=== PATIENT | female | born 1995 ===

== ENCOUNTER 2023-10-10 05:48 | Inpatient (IN) ==
--- NOTE | 2023-10-03 12:00 | Anesthesiology Consultation ---
Date of Service October 03, 2023 Assessment & Plan (1) Encounter for pre-operative examination: Chart Review Chart Review: blasting entry specialist initiated -Infectious Disease screening: Per PAT nursing assessment on 10/01/23. No known infectious disease contacts in past 10 days or current infectious disease symptoms. No recent travel outside the country. History Surgery Operation Date: 10/10/23 08:50 Proposed Procedures p Primary Section in - Melissa Tovar MD Height/Weight Height: 5 ft 7 in Weight: 136.078 kg Allergies Allergy/AdvReac Type Severity Reaction Status Date / Time escitalopram [From Lexapro] Allergy Mild Diarrhea Verified 10/01/23 15:01 Medications Home Medications Medication Instructions Recorded Confirmed Last Taken ascorbic acid (vitamin C) 500 mg 500 mg PO QAM 10/01/23 10/01/23 Unknown tablet (Vitamin C) cholecalciferol (vitamin D3) 50 50 mcg PO QAM 10/01/23 10/01/23 Unknown mcg (2,000 unit) capsule (Vitamin D3) sertraline 100 mg tablet 75 mg PO QPM 10/01/23 10/01/23 Unknown vitamin [id number] B1 100 mg-1 10 ml IM [id number] 10/01/23 10/01/23 Unknown mg/mL intramuscular solution Past Medical History Medical History Anemia iron infusion completed 09/28/23 Depression with anxiety History of COVID-19 (~08/2022) home test, resolved Past Surgical History Surgical History History of tonsillectomy and adenoidectomy Hx of bariatric surgery (~11/2021) gastric sleeve Hx of esophagogastroduodenoscopy Social History Smoking Status: Never smoker Do You Dip or Chew Tobacco: No Hx Alcohol Use: No Hx Substance Use: No substance use type: does not use Testing Laboratory Results 08/24/23= HGB: 11.2 POTASSIUM: 3.9 CREATININE: 0.60 GLUCOSE: 113
[2023-10-10] MEDS: LACTATED RINGER'S 1,000 ML IV SCH (06:25)
[2023-10-10] MEDS ORDERED: ONDANSETRON INJ 2 MG/ML 2 ML VIAL ONE (06:46)
[2023-10-10] MEDS ORDERED: ePHEDrine sulfate 50 MG/5 ML SYR ONE (06:46)
[2023-10-10] MEDS ORDERED: PHENYLEPHRINE 100MCG/ML 10ML SYR IV ONE (06:46)
[2023-10-10] MEDS ORDERED: OXYTOCIN 10 UNITS/ML VIAL ONE (06:46)
[2023-10-10] MEDS ORDERED: fentaNYL citrate PF 100 MCG/2 ML VIAL ONE (06:47)
[2023-10-10] MEDS ORDERED: MoRPHine SULFATE PF 1 MG/ML 10 ML AMP/VIAL ONE (06:47)
[2023-10-10] MEDS: CITRIC ACID/SODIUM CITRATE 15 ML UDC PO SCH (07:07)
[2023-10-10] MEDS: ceFAZolin 3,000 MG/72.5 ML BAG IV SCH (07:46)
--- NOTE | 2023-10-10 07:50 | History & Physical Bridge Note ---
Date of Service October 10, 2023 History & Physical Bridge Note I have examined the patient, reviewed the History & Physical and in the interval since the performance of the History & Physical I have noted the following changes of clinical significance: no changes noted Bed side US: Breech Patient has mild cough, no fever, chills, nor sore throat CVS S1S2 RRR Lungs: CTAB FHR categ I Pulse ox 99% RA Has signed an informed consent. All questions were answered.
[2023-10-10] MEDS ORDERED: LACTATED RINGER'S 500 ML IV PRN (08:32)
[2023-10-10] MEDS ORDERED: PROMETHAZINE HCL 6.25 MG in SODIUM CHLORIDE 0.9% 50 ML IV PRN (08:32)
[2023-10-10] MEDS ORDERED: ePHEDrine sulfate 50 MG/ML AMP IV PRN (08:32)
[2023-10-10] MEDS ORDERED: NALOXONE HCL 1 MG in SODIUM CHLORIDE 0.9% 1,000 ML IV PRN (08:32)
[2023-10-10] MEDS ORDERED: NALBUPHINE HCL 5 MG in SYRINGE 0 ML IV PRN (08:32)
[2023-10-10] MEDS ORDERED: NALOXONE HCL 0.08 MG in SYRINGE 1.8 ML IV PRN (08:32)
[2023-10-10] MEDS ORDERED: ONDANSETRON INJ 2 MG/ML 2 ML VIAL IV PRN (08:32)
[2023-10-10] MEDS ORDERED: NALOXONE HCL 0.4 MG/1 ML VIAL/CARP IV PRN (08:32)
[2023-10-10] MEDS ORDERED: DC INTRASPINAL MORPHINE SCH (08:45)
[2023-10-10] MEDS ORDERED: NO NARCOTICS OR SEDATIVES SCH (08:45)
--- NOTE | 2023-10-10 09:41 | Operative Report ---
Post Operative Report Pre & Post Diagnosis Operation Date: 10/10/23 07:30 Pre-Op Diagnosis: Michael Breech Presentation Post-Op Diagnosis: Michael Breech Presentation I identified the patient and participated in the time-out.: Yes Procedure Operation Date: 10/10/23 07:30 Actual Procedures p Primary Section - Melissa Tovar MD Surgeon Melissa Tovar MD Administrative Support Specialist Dr ASKEW Estimated Blood Loss 500 Findings Consistent with Post-Op Diagnosis Baby was a viable female infant, delivered at 0 8:48 AM in michael breech presentation, Apgars 2/9, weight 4020 g Maternal findings: Normal uterus, fallopian tubes and ovaries. Specimens Placenta Drains Bowers catheter drained 150 mL of clear urine Anesthesia Type Spinal Complications none Disposition Accompanied Patient To Recovery: Yes Indications Patient is a 27-year-old G1, P0 at 39 weeks and 5 days of gestation who was scheduled for primary for breech presentation at term. Bedside ultr asound confirmed breech presentation before the procedure. Description of Procedure Patient was taken to operating room where a spinal anesthesia was given without difficulty. She was placed in dorsal supine position with a leftward tilt. She was prepared and draped in usual sterile fashion. A financial skin incision was made and carried through to the underlying layer of fascia with the Bovie. Fascia was incised in the midline and incision was extended laterally with the help of Meléndez scissors. Then the upper aspect of the fascial incision was grasped with 2 Vance clamps elevated the underlying rectus muscles were dissected off sharply with Meléndez scissors. Same thing was done on the lower incision. Then the muscles were in the midline, peritoneum was identified grasped with 2 pickups and entered sharply with Metzenbaum scissors. Peritoneal incision was extended superior and inferiorly with good visualization of the bladder. The bladder blade was inserted. Vesicouterine peritoneum was identified, grasped with pickups and entered sharply with Metzenbaum scissors, bladder flap was created digitally and bladder blade was reinserted. Uterus was incised in transverse fashion, incision was extended laterally with Bandage scissors, membranes were ruptured and clear fluid was obtained. Baby's buttocks were delivered , followed by legs and arms in flexion position and then head without faculty. Mouth and nose were suctioned, The cord was clamped times and cut and then the infant was handed off to the pediatric team. Dr. Tadeo. Then the placenta was delivered manually as intact and complete. Uterus was externalized and cleared of all clots and debris's. Uterine incision was repaired with 0 Vicryl in a running locked fashion, second umbricating layer was placed with the same suture in running locked fashion. Excellent hemostasis achieved. Cul-de-sac and the pelvis was irrigated with warm normal saline and suctioned. Incision was checked of anesthetic again. Uterus was returned to the abdomen, parietal peritoneum was reapproximated with 3-0 Vicryl in a running fashion and the muscles were reapproximated in the same suture in a running fashion. All of the fascia and rectus muscles were hemostatic. Rectus fascia was reapproximated with #1 Vicryl starting from both corners meeting in the midline. Subcuticular fat tissue was brought together with 2-0 Vicryl in a running fashion, skin was closed with 4-0 Monocryl in a subcuticular cuticular fashion. Incision was draped with allison dressing. The mom and baby tolerated procedure well. Sponge needle instrument count was correct x3. No complications happened, I was present during whole procedure. My safety assistant was needed for retraction, hemostasis and aid during delivery of infant. I attest to the content of the Intraoperative Record and any orders documented therein. Any exceptions are noted below.
[2023-10-10] MEDS ORDERED: SENNA 8.6 MG TAB PO PRN (09:42)
[2023-10-10] MEDS ORDERED: HYDROCORTISONE ACETATE 25 MG SUPP PR PRN (09:42)
[2023-10-10] MEDS ORDERED: BENZOCAINE 20% SPRY 85 APPLN/85 GM CAN EXT PRN (09:42)
[2023-10-10] MEDS ORDERED: MAGNESIUM HYDROXIDE SUSP 30 ML UDC PO PRN (09:42)
[2023-10-10] MEDS ORDERED: IBUPROFEN 600 MG TAB PO PRN (09:42)
--- NOTE | 2023-10-10 09:57 | Anesthesiology Progress Note ---
Date of Service October 10, 2023 Anesthesia Post Procedure Vital Signs Vital Signs: Temp Pulse Resp BP Pulse Ox 10/10/23 09:53 70 100 10/10/23 09:52 73 92 10/10/23 09:48 55 L 99 10/10/23 09:45 57 L 106/53 L 10/10/23 08:01 80 99 10/10/23 07:56 70 99 10/10/23 07:51 81 99 10/10/23 07:46 87 99 10/10/23 06:07 36.6 C 18 10/10/23 06:03 36.6 C 115 H 18 121/74 Transfer of Care Handoff Completed per policy Notes Mental Status: alert / awake / arousable and participated in evaluation Patient Amnestic to Procedure: No Nausea / Vomiting: adequately controlled Pain: adequately controlled Airway Patency, RR, SpO2: stable & adequate BP & HR: stable & adequate Hydration State: stable & adequate Neuraxial Anesthesia: was administered and sensory block is resolving Anesthetic Complications: no major complications apparent and Pt Satisfied with anesthetic care
[2023-10-10] MEDS: OXYTOCIN 20 UNITS/LR 1,002 ML IV SCH (10:29)
[2023-10-10] MEDS: KETOROLAC 30 MG/ML VIAL IV PRN (10:29)
[2023-10-10] MEDS: diphenhydrAMINE 50 MG/ML VIAL IV PRN (12:51)
[2023-10-10] MEDS: SIMETHICONE 80 MG CHEW PO SCH (13:43)
[2023-10-10] MEDS: HYDROmorphone INJ 0.5 MG/0.5 ML SYR IV PRN (14:01)
--- OUTSIDE RECORDS SUMMARY | 2023-10-10 16:29 | External Medical Summary | Summary of Care ---
Author Name Unknown Organization [facility] [address] [place] [address] Phone [phone] Care Team Providers Care Joiners Supervisor Name Role Phone Unavailable Primary Care Provider Unavailabl e Encounter Details Date Type Department Care Team (Late st Contact Info) Description 10/06/2023 Telephone Gynecology/Obstetrics [facility] [address] [place] [id number] Genoveva Zheng [facility] [address] [facility] [place] [address] Allergies Active Allergy Reactions Criticality Noted Date Comments Escitalopram Diarrhea 09/07/2020 documented as of this encounter (statuses as of 10/06/2023) Medications Medication Sig Dispensed Refills Start Date End Date Status 28-0.8 MG Oral Tablet Take by mouth. 0 Active OneTouch Verio Flex System w/Device KitIndications:Obesi ty in , antepartum,H/O gastric sleeve Use to test blood sugars 4 times daily (fasting, 1 hour after breakfast, lunch, and dinner) 1 Kit 0 03/13/2023 Active Additional Information Patient not taking.Reported on 05/28/2023 OneTouch Verio In Vitro Strip (Glucose Blood)Indications:Ob esity in , antepartum,H/O gastric sleeve Use to test blood sugars 4 times daily (fasting, 1 hour after breakfast, lunch, and dinner) 125 Strip 6 03/13/2023 Active Additional Information Patient not taking.Reported on 05/28/2023 OneTouch Delica Lancets 30GIndications:Obesi ty in , antepartum,H/O gastric sleeve Use to test blood sugars 4 times daily (fasting, 1 hour after breakfast, lunch, and dinner) 200 Each 6 03/13/2023 Active Additional Information Patient not taking.Reported on 05/28/2023 Ferrous Fumarate 324 (106 Fe) MG Oral Tablet Take 1 Tablet by mouth in the morning. Take with vitamin C. 90 Tablet 3 05/17/2023 Active Additional Information Patient not taking.Reported on 06/05/2023 Vitamin C 500 MG Oral Tablet Chewable Take 1 Tablet by mouth in the morning. 90 Tablet 3 05/17/2023 Active Sertraline HCl 50 MG Oral Tablet (Zoloft)Indications: DUDLEY (generalized anxiety disorder) Take 1.5 Tablets by mouth in the morning. 45 Tablet 5 05/28/2023 Active Vitamin D3 50 MCG (2000 UT) Oral Capsule Take 1 Capsule by mouth in the morning. 30 Capsule 5 05/29/2023 Active Thiamine HCl 100 MG Oral Tablet (vitamin B-1) Take 1 Tablet by mouth in the morning. 30 Tablet 1 06/11/2023 Active Breast Pump BREAST FEEDING STATUS OF MOTHER Z39.1 DAPHNE 10/13/23 1 Each 0 07/16/2023 Active Cyanocobalamin 1000 MCG/ML Injection Solution (Cyanocobalamin)Erin cations:B12 deficiency Administer 1000mcg into large muscle weekly x4 weeks then monthly thereafter 1 mL 8 08/27/2023 Active BD TB Syringe 27G X 1/2" 1 ML (Tuberculin Syringe)Indications: B12 deficiency Use as directed with Retacrit 4 Each 2 08/27/2023 Active Ondansetron 4 MG Oral Tablet Disintegrating (Zofran)Indications: Nausea and vomiting during Place 1 Tablet on tongue every 8 hours as needed for Nausea for up to 10 days. dissolve on tongue. 10 Tablet 1 10/06/2023 Active documented as of this encounter (statuses as of 10/06/2023) Active Problems Problem Noted Date Diagnosed Date Iron deficiency anemia due to chronic blood loss 05/29/2023 H/O gastric bypass 05/29/2023 Antepartum anemia complicating 023 Last Assessment & Plan: KHADAR in setting of prior gastric bypass. Scheduled for first IV iron therapy today. Hemoglobin Results: Lab Results Component Value Date/Time HGB - [facility] 9.0 (L) 05/29/2023 01:12 PM BMI 40.0-44.9, adult 05/16/2023 Anxiety disorder affecting , antepartum 03/13/2023 Overview: Anxiety managed with Zoloft by Dr. Carter Stopped Trazodone with knowledge of the Last Assessment & Plan: Continue zoloft. No concerns reported today. HTN in , chronic 03/13/2023 Overview: Treated with antihypertensives prior to gastric sleeve surgery, BP has normalized since and she is no longer on medications. Encouraged patient to complete baseline preeclampsia labs at her earliest convenience. Recommend bASA 81 mg daily. Encouraged patient to discuss with bariatric surgery prior to starting aspirin therapy. BP Readings from Last 5 Encounters: 04/13/23 112/66 03/13/23 110/64 10/23/22 134/84 02/08/22 118/70 09/01/21 126/70 Baseline Preeclampsia Labs Lab Results Component Value Date/Time PROTEIN/ CREATININE RATIO, URINE - [facility] 93 03/13/2023 12:21 PM Last Assessment & Plan: BP Readings from Last 3 Encounters: 05/29/23 137/71 05/28/23 112/78 04/13/23 112/66 Obesity in , antepartum 10/23/2022 Overview: Pre-gravid BMI 45.25 (#289, 5'7") Early gestational diabetes screening not completed to date. Patient plans to complete [address] Boyce staff message 03/14/23 for recommendations for possible GLH delivery Last Assessment & Plan: CONSIDERATIONS: Discussed obstetrical risks associated with class III obesity (pre- BMI of greater than or equal to 40) Reviewed that the accuracy of ultrasound at diagnosing anomalies is significantly decreased for women with an increased BMI. RECOMMENDATIONS: Recommend restricting weight gain during to 11-20 pounds. Patient should be referred for a nutrition consult. Recommend evaluation for signs and symptoms (snoring, excessive daytime sleepiness witnessed apnea or unexplained hypoxia) of obstructive sleep apnea. If any of these are present, referral to Sleep Medicine specialist for further evaluation should be considered. Recommend performing gestational diabetes mellitus screen now (if not performed at first visit) and repeat again at 26-28 weeks if early screen is normal. Recommend Maternal- Medicine ultrasound for anatomy at 20 weeks and for growth every 4 weeks thereafter. For patients with Class 3 obesity, we recommend baseline preeclamptic labs with CBC, serum AST/ALT/creatinine and 24 hour urine protein ANTWAN if not already done. For patients with Class 3 obesity, we recommend weekly surveillance starting at 34 weeks and delivery by EDC. Recommend anesthesia consult during the antepartum period. Previous gastric bypass affecting , ant epartum 02/08/2022 Overview: Patient underwent laparoscopic sleeve gastrectomy through [facility] in November 29, 2021 (Dr Aguirre). Starting weight was 430 lbs. She no longer follows with Nutrition or with bariatric surgery. She states that she has lost weight unintentionally thus far in . Last Assessment & Plan: CONSIDERATIONS: Explained to patient that weight loss after bariatric surgery often leads to greater fertility and a decreased risk for the obstetric complications. Explained that it is recommended to delay for 12 to 24 months after bariatric surgery to avoid during the period of rapid weight loss. Women with a gastric band should be monitored during because the band may need to be adjusted. In there may be a delay in diagnosis of bariatric-related operative complications, including anastomotic leaks, bowel obstructions, internal hernias, ventral hernias, band erosion, and band migration. Therefore, all gastrointestinal problems such as nausea, vomiting, and abdominal pain should be thoroughly evaluated with involvement of the bariatric surgeon because the underlying pathology may be related to the bariatric surgery, not the itself. Discussed the most common nutritional deficiencies after gastric bypass surgery to include protein, iron, vitamin B12, folate, vitamin D, and calcium. RECOMMENDATIONS: Vitamin supplements recommended for the woman with a history of bariatric surgery are as follows: - vitamin daily with 1mg of folic acid -Vitamin B12 IM injection 1000mcg monthly -Vitamin D 800 IU daily -Calcium citrate 3781-5849 mg daily (better absorbed than calcium carbonate) -Ferrous fumarate 325 mg daily (taken with vitamin C to improve absorption and acidify the stomach). -If patient has persistent vomiting, then add thiamine 50mg daily. Other nutritional information to consider: -Protein intake of 60 g daily is recommended. -Excess vitamin A consumption during is associated with defects. Vitamin A should be limited to less than 5,000 IU per day during . Vitamins with beta-carotene, the pre-form Vitamin A which is not teratogenic, are preferred. Recommend nutrition referral to help the patient adhere to dietary regimens and to cope with the physiologic changes of . Recommend Maternal Medicine anatomy ultrasound at 19-20 weeks and serial growth assessments every 4 weeks after 24 weeks. Patients with a history of gastric bypass often cannot tolerate the gestational diabetes screen secondary to dumping syndrome. Therefore, as an alternative screening method, we recommend monitoring fasting and 1-hour postprandial blood sugars for one week between 24-28 weeks of gestation. Bariatric surgery should not alter the course of labor and delivery, and therefore, it does not significantly affect its management. Bariatric surgery itself should not be considered as an indication for delivery. Patients with history of bariatric surgery within past two years should notify their bariatric surgeon. Consider pre-labor consultation with bariatric surgeon if extensive abdominal surgery was performed. 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 DUDLEY (generalized anxiety disorder) Estimated Date of Delivery Comme nts Yes 10/13/2023 Based on last me nstrual period of 01/06/2023 (Exact Date) documented as of this encounter (statuses as of 10/06/2023) Resolved Problems Problem Noted Date Diagnosed Date Resolved Date Supervision of high-risk pre gnancy, second trimester 05/16/2023 10/06/2023 Last Assessment & Plan: Declined genetic screening S/P gastric bypass 02/08/2022 Last Assessment & Plan: 12/18 Body mass index (BMI) of 60. 0 to 69.9 in adult 10/04/2020 10/23/2022 Overview: Per Obesity protocol Chest pain 08/31/2020 09/29/2020 Menorrhagia with irregular cycle 08/31/2020 05/28/2023 Obesity, morbid (more than 1 00 lbs over ideal weight or BMI > 40) 08/31/2020 10/07/2020 Overview: Per Obesity protocol Fatigue 08/31/2020 01/26/2021 Fear of needles 08/31/2020 02/08/2022 Hypertension 05/28/2023 Depression 08/31/2020 documented as of this encounter (statuses as of 10/06/2023) Immunizations Name Administration Dates Next Due DT - Diptheria/Tetanus (PEDS) 11/28/1996 DTaP Dipth/Tet/Acell Pertussis (Infanrix), Peds 11/06/2000,04/13/1997,11/28/1996, 997,05/02/1996 Hepatitis B, 0-19 yrs 11/28/1996,08/19/1996,10/1995 MMR - Measles/Mumps/Rubella Vaccine 11/06/2000,0 04/13/1997 PPD 03/15/2021 Varicella Vaccine (Chicken Pox) 11/01/2011,03/20 documented as of this encounter Social History Tobacco Use Types Packs/Day Years Used Date Smoking Tobacco: Never Smokeless Tobacco: Never Alcohol Use Standard Drinks/Week Comments Not Currently 0 (1 standard drink = 0.6 oz pur e alcohol) Denies in AUDIT-C Answer Date Recorded Q1: How often do you have a drink containing alc ohol? 2-4 times a month 08/31/2020 Q2: How many drinks containi ng alcohol do you have on a typical day when you are drinking? 5 or 6 08/31/2020 Q3: How often do you have si x or more drinks on one occasion? Monthly 08/31/2020 PHQ-2 Answer Date Recorded PHQ Adult Total Score 0 09/29/2020 Hunger Vital Sign Answer Date Recorded Within the past 12 months, y ou worried that your food would run out before you got the money to buy more. Never true 06/05/20 23 Within the past 12 months, t he food you bought just didn't last and you didn't have money to get more. Never true 06/05/2023 Jerome Depression Scale Answer Date Recorded Jerome Depression Scale Total 7 07/16/2023 The thought of harming myself has occurred to me . Never 07/16/2023 Estimated Date of Delivery Comme nts Yes 10/13/2023 Based on last me nstrual period of 01/06/2023 (Exact Date) Sex and Gender Information Value Date Recorded Sex Assigned at Female 09/11/2022 6:41 AM EST Gender Identity Female 09/11/2022 6:41 AM EST Sexual Orientation Straight 09/11/2022 6: 41 AM EST Job Start Date Occupation Industry Not on file Not on file Not on file documented as of this encounter Miscellaneous Notes * Telephone Encounter - Genoveva Zheng MD - 10/06/2023 11:26 AM EST Patient request on d/c from [facility] triage RX sent documented in this encounter Plan of Treatment Upcoming Encounters Date Type Department Care Team (Late st Contact Info) Description 10/08/2023 11:30 AM EDT Telemedicine Hematology Oncology [facility] [address] [place] [address] Wandy Stone CRNP [address] [place] [address] 10/18/2023 12:00 PM EDT Office Visit Gynecology/Obstetrics [facility] [address] [place] [id number] Josy Boss CRNP [address] [place] [address] Health Maintenance Due Date Last Done Comments DTaP,Tdap,and Td Vaccines (6 - Tdap) 10/10/2006 11/06/2000, 04/13/1997, 11/28/1996, Additional history exists HIV Screening 10/10/2010 Depression Screening 09/29/2021 09/29/2020 COVID-19 Vaccine ( season) 2023 Influenza Vaccine (FLU shot) (#1) 2023 GFR 08/24/2024 08/24/2023, 05/01, 05/24/2023, Additional history exists Pap Smear 03/13/2026 03/13/2023 Hepatitis B Completed 11/28/1996, 07/31, 05/02/1996 Gonorrhea / Chlamydia Screen Discontinued 03/13/2023 Albumin/Creatinine Ratio Discontinued 05/24/2023, 04/30 GARDASIL-HPV IMMUNIZATION SERIES Aged Out No longer eligible based on patient's age to complete this topic MENINGOCOCCAL (MENACTRA/MENVEO) Aged Out No longer eligible based on patient's age to complete this topic Pneumococcal Vaccine: Pediatrics (0 to 5 Years) and At-Risk Patients (6 to 64 Years) Aged Out No longer eligible based on patient's age to complete this topic documented as of this encounter Medical Devices Not on filedocumented as of this encounter Visit Diagnoses Diagnosis Nausea and vomiting during - Primary documented in this encounter
--- OUTSIDE RECORDS SUMMARY | 2023-10-10 16:29 | External Medical Summary | Summary of Care ---
Author Name Unknown Organization [facility] Address [address] [place] [address] Phone [phone] Care Team Providers Care Lawn Specialist Name Role Phone Unavailable Primary Care Provider Unavailabl e Encounter Details Date Type Department Care Team (Late st Contact Info) Description 10/08/2023 Orders Only [facility] [address] [place] [address] Josy Boss CRNP [address] [place] [id number] Allergies Active Allergy Reactions Criticality Noted Date Comments Escitalopram Diarrhea 09/07/2020 documented as of this encounter (statuses as of 10/08/2023) Medications Medication Sig Dispensed Refills Start Date [...] as of this encounter (statuses as of 10/08/2023) Active Problems Problem Noted Date Diagnosed Date [...] Overview: Patient underwent laparoscopic sleeve gastrectomy through [facility] in November 29, 2021 (Dr Aguirre). [...] -Vitamin D 800 IU daily -Calcium citrate 2310-2792 mg daily (better absorbed than calcium carbonate) [...] Fear of other medical care 08/31/2020 Overview: [facility] [employer] exams. DUDLEY (generalized anxiety disorder) Estimated Date of Delivery Comme nts Yes 10/13/2023 Based on last me nstrual period of 01/06/2023 (Exact Date) documented as of this encounter (statuses as of 10/08/2023) Resolved Problems Problem Noted Date Diagnosed Date [...] as of this encounter (statuses as of 10/08/2023) Immunizations Name Administration Dates Next Due DT [...] money to get more. Never true 06/05/2023 [place] Depression Scale Answer Date Recorded [place] Depression Scale Total 7 07/16/2023 The thought [...] on file documented as of this encounter Plan of Treatment Upcoming Encounters Date Type Department Care Team (Late st Contact Info) Description 10/08/2023 11:30 AM EDT Telemedicine Hematology Oncology [facility] [address] [place] [address] Wandy Stone CRNP [address] [place] [address] 10/18/2023 12:00 PM EDT Office Visit Gynecology/Obstetrics [facility] [address] [place] [phone] Josy Boss CRNP [address] [place] [phone] Health Maintenance Due Date Last Done Comments DTaP,Tdap,and Td Vaccines (6 - Tdap) 10/10/2006 11/06/2000, 04/13/1997, 11/28/1996, Additional history exists HIV Screening 10/10/2010 Depression Screening 09/29/2021 09/29/2020 COVID-19 Vaccine ( season) 2023 Influenza Vaccine (FLU shot) (#1) 2023 GFR 08/24/2024 10/06/2023, 07/31, 05/29/2023, Additional history exists Pap Smear 03/13/2026 03/13/2023 [...] Not on filedocumented as of this encounter Procedures Procedure Name Priority Date/Time Associated Diagnosis Comments CHEMISTRY-OUTSIDE Routine 10/06/2023 documented in this encounter Results * CHEMISTRY-OUTSIDE (10/06/2023) Not all results display below - see scan for full detail OUTSIDE LAB (SEE SCANNED REPORT) Comment:SEE SCAN; CMP, CBCD ,UA RFLX MICROS CREATININE-OUTSID E LAB 0.66 0.6 - 1.2 MG/DL OUTSIDE LAB (SEE SCANNED REPORT) EGFR-OUTSIDE LAB 121.1 ML/MIN/1.7 3M2 OUTSIDE LAB (SEE SCANNED REPORT) POTASSIUM-OUTSIDE LAB 3.8 3.5 - 5.1 MMOL/L OUTSIDE LAB (SEE SCANNED REPORT) GLUCOSE-OUTSIDE LAB 81 70 - 99 MG/DL OUTSIDE LAB (SEE SCANNED REPORT) HOURS FASTING OUTSID E LAB (SEE SCANNED REPORT) TRIGLYCERIDES-OUT SIDE LAB OUTSIDE LAB (SEE SCANNED REPORT) CHOLESTEROL-OUTSI DE LAB OUTSIDE LAB (SEE SCANNED REPORT) HDL-OUTSIDE LAB OUTS FAHAD LAB (SEE SCANNED REPORT) CHOL/HDL RATIO-OUTSIDE LAB OUTSIDE LA B (SEE SCANNED REPORT) LDL (CALCULATED)-OUTS FAHAD LAB OUTSIDE LAB (SEE SCANNED REPORT) LDL (DIRECT MEASURE)-OUTSIDE LAB OUTSIDE LAB (SEE SCANNED REPORT) HEMOGLOBIN, Q5C-TMOQGKR LAB OUTSIDE LAB (SEE SCANNED REPORT) PHOSPHORUS-OUTSID E LAB OUTSIDE LAB (SEE SCANNED REPORT) PTH-OUTSIDE LAB OUTS FAHAD LAB (SEE SCANNED REPORT) MICROALBUMIN RATIO-OUTSIDE LAB OUTSIDE LA B (SEE SCANNED REPORT) PROTEIN, UA-OUTSIDE LAB OUTSIDE LAB (SEE SCANNED REPORT) HEMOGLOBIN-OUTSID E LAB 12.3 12.0 - 16.0 G/DL OUTSIDE LAB (SEE SCANNED REPORT) 10/06/2023 Howard Bustos MD LABORATORY OUTSIDE LAB (SEE SCANNED REPORT) documented in this encounter
[2023-10-10] MEDS: ceFAZolin 2000MG 2,000 MG/15 ML SYR IV SCH (16:35)
[2023-10-10] MEDS: LACTATED RINGER'S 1,000 ML IV ONE (18:21)
[2023-10-10] MEDS: DOCUSATE SODIUM 100 MG CAP PO SCH (21:36)
[2023-10-10] MEDS ORDERED: [UNRECOGNIZED DRUG - OTHER] IM SCH (22:30)
[2023-10-10] MEDS ORDERED: SERTRALINE HCL 100 MG TABLET PO SCH (22:30)
[2023-10-10] MEDS: SERTRALINE HCL 50 MG TABLET PO SCH (23:30)
[2023-10-11] MEDS ORDERED: diphenhydrAMINE 50 MG/ML VIAL IV PRN (02:33)
[2023-10-11] MEDS ORDERED: MEPERIDINE HCL 50 MG/ML CARP IV PRN (02:33)
[2023-10-11] MEDS ORDERED: ONDANSETRON INJ 2 MG/ML 2 ML VIAL IV PRN (02:33)
[2023-10-11] MEDS ORDERED: diphenhydrAMINE Capsule 25 MG CAP PO PRN (02:33)
[2023-10-11] MEDS ORDERED: KETOROLAC 30 MG/ML VIAL IV PRN (02:33)
[2023-10-11] MEDS ORDERED: PROMETHAZINE HCL 25 MG in SODIUM CHLORIDE 0.9% 50 ML IV PRN (02:33)
[2023-10-11 07:54] LABS: Basophils # (auto) 0.01 K/uL (0.00-0.20); Basophils % (auto) 0.2 %; Hematocrit (blood only) 34.2 % (37.0-47.0); Hemoglobin 11.1 g/dl (12.0-16.0); Immature Granulocytes # (auto) 0.02 K/uL (0.01-0.20); Immature Granulocytes % (auto) 0.4 %; Lymphocytes # (auto) 0.69 K/uL (1.20-3.40); Lymphocytes % (auto) 14.4 %; Mean Corpuscular Hemoglobin 24.9 pg (25.0-34.0); Mean Corpuscular Hgb Conc 32.5 g/dL (32.0-36.0); Mean Corpuscular Volume 76.7 fL (80.0-100.0); Mean Platelet Volume 9.6 fL (9.4-12.4); Monocytes # (auto) 0.35 K/uL (0.11-0.59); Monocytes % (auto) 7.3 %; Neutrophils # (auto) 3.71 K/uL (1.40-6.50); Neutrophils % (auto) 77.7 %; Platelet Count 115 K/uL (130-400); RDW Coefficient of Variation 18.3 % (11.5-14.5); RDW Standard Deviation 50.8 fL (36.4-46.3); Red Blood Count 4.46 M/uL (4.20-5.40); White Blood Count 4.78 K/ul (4.8-10.8)
[2023-10-11] MEDS: oxyCODONE/ACETAMINOPHEN 5mg/325mg TAB PO PRN (08:24)
[2023-10-11] MEDS: FERROUS SULFATE 325 MG TAB PO SCH (08:25)
[2023-10-11] MEDS: PRENATAL VITAMIN 1 TAB PO SCH (08:25)
[2023-10-11] MEDS: CHOLECALCIFEROL 25 MCG (1000 UNITS) TAB PO SCH (08:28)
[2023-10-11] MEDS: ASCORBIC ACID 500 MG TAB PO SCH (08:28)
[2023-10-11] MEDS ORDERED: oxyCODONE HCL IR 5 MG TAB (IMMEDIATE RELEASE) PO PRN (10:13)
--- NOTE | 2023-10-11 10:17 | Obstetrical Progress Note ---
Date of Service October 11, 2023 Assessment & Plan (1) delivery delivered: POD #1 pt doing well Hx of gastric sleeve meds changed to Oxycodone and Tylenol continue day #1 care Subjective Ambulation: ambulating normally Voiding: no voiding problems Passing Gas:: Yes Diet Tolerance:: clear liquids Lochia:: Small Feeding Type:: breast feeding Review of Systems All systems reviewed & are unremarkable except as noted in HPI & below Physical Exam Constitutional WD/WN, vitals as above well developed and well nourished Eyes PERRL, conjunctivae normal, anicteric sclerae ENMT external ear and nose normal, oropharynx normal Neck trachea midline, no thyromegaly Respiratory normal respiratory effort, lungs clear to auscultation Cardiovascular RRR, no murmur, no edema Chest (Breasts) normal inspection/palpation of breasts Gastrointestinal (Abdomen) normal bowel sounds, soft, nontender, no hepatosplenomegaly Musculoskeletal no cyanosis or clubbing, extremities motor strength 5/5 Skin no rashes, warm and dry + incision (Clean,dry and intact) Neurologic patellar DTR's 2+ bilat, sensation intact Psychiatric A+Ox3, euthymic affect Genitourinary normal external appearance Lymphatic no cervical or axillary lymphadenopathy Results & Data Vital Signs (Past 12 Hours) Vital Signs Temp Pulse Resp BP Pulse Ox O2 Del Method 10/11/23 08:10 36.8 C 80 22 98/65 L 96 Room Air 10/11/23 03:00 36.8 C 89 18 105/65 93 Room Air 10/11/23 02:00 18 93 10/11/23 01:13 18 95 10/11/23 00:15 18 96 10/10/23 23:30 18 95 10/10/23 23:30 36.8 C 76 18 111/72 95 Room Air 10/10/23 23:00 18 97
[2023-10-11] MEDS: oxyCODONE HCL IR 5 MG TAB (IMMEDIATE RELEASE) PO PRN (13:00)
[2023-10-11] MEDS: bisacodyL 5 MG TABEC PO SCH (19:55)
[2023-10-12] MEDS: BISMUTH SUBSALICYLATE LIQD 236 ML PO PRN (03:53)
[2023-10-12 07:14] LABS: Hemoglobin 12.2 g/dl (12.0-16.0)
--- NOTE | 2023-10-12 09:29 | Obstetrical Progress Note ---
Date of Service October 12, 2023 Assessment & Plan Admission and Anticipated Discharge Date Admission Date: October 10, 2023 Subjective Patient is seen and examined. She feels well, no complaints other than being tired. Pain is under control with oral meds. Ambulating without dizziness Voiding without difficulty Tolerating regular diet with out N&V Flatus + BM + diarrhea Bleeding is minimal No fever/ chills/ CP/ SOB/ N&V/ Leg pain Breast feeding without problems Lab Results 10/10/23 10/11/23 10/12/23 Range/Units 06:04 07:32 06:33 WBC 4.78 L (4.8-10.8) K/ul RBC 4.46 (4.20-5.40) M/uL Hgb 11.1 L 12.2 (12.0-16.0) g/dl Hct 34.2 L 38.0 (37.0-47.0) % MCV 76.7 L (80.0-100.0) fL MCH 24.9 L (25.0-34.0) pg MCHC 32.5 (32.0-36.0) g/dL RDW Std Deviation 50.8 H (36.4-46.3) fL RDW Coeff of Miriam 18.3 H (11.5-14.5) % Plt Count 115 L (130-400) K/uL MPV 9.6 (9.4-12.4) fL Immature Gran % (Auto) 0.4 % Neut % (Auto) 77.7 % Lymph % (Auto) 14.4 % [place] % (Auto) 7.3 % Eos % (Auto) 0.0 % Baso % (Auto) 0.2 % Neut # (Auto) 3.71 (1.40-6.50) K/uL Lymph # (Auto) 0.69 L (1.20-3.40) K/uL [place] # (Auto) 0.35 (0.11-0.59) K/uL Eos # (Auto) 0.00 (0.00-0.50) K/uL Baso # (Auto) 0.01 (0.00-0.20) K/uL Immature Gran # (Auto) 0.02 (0.01-0.20) K/uL Blood Type A Positive Antibody Screen NEGATIVE Vital Signs Temp Pulse Resp BP Pulse Ox O2 Del Method 10/11/23 23:04 36.8 C 83 20 113/77 94 Room Air 10/11/23 19:30 36.7 C 80 18 109/71 92 Room Air 10/11/23 15:05 37 C 92 H 18 104/71 94 Room Air 10/11/23 12:45 36.8 C 92 H 18 112/73 95 Room Air PE: General: Alert, orientedx3, NAD CVS: S1S2 RRR Lungs; CTAB Abd: soft, NT, ND, BS+, fundus firm, below Umbilicus Incision: Clean, dry, intact Perineum intact, Lochia rubra minimal Ext; NT, no edema AP: 28 yo s/p C Section, pod# 2 VSS Afebrile doing well Continue routine postop care Encourage ambulation, PO intake All questions were answered D/C home tomorrow Results & Data Vital Signs (Past 12 Hours) Vital Signs Temp Pulse Resp BP Pulse Ox O2 Del Method 10/11/23 23:04 36.8 C 83 20 113/77 94 Room Air
[2023-10-12] MEDS ORDERED: bisacodyL 10 MG SUPP PR PRN (09:42)
[2023-10-12] MEDS: ADVANCED PROBIOTIC 625 MG CAPSULE PO SCH (10:44)
[2023-10-12 10:45] LABS: Basophils # (auto) 0.01 K/uL (0.00-0.20); Basophils % (auto) 0.1 %; Eosinophils # (auto) 0.01 K/uL (0.00-0.50); Eosinophils % (auto) 0.1 %; Hematocrit (blood only) 39.2 % (37.0-47.0); Hemoglobin 12.1 g/dl (12.0-16.0); Immature Granulocytes # (auto) 0.03 K/uL (0.01-0.20); Immature Granulocytes % (auto) 0.4 %; Lymphocytes # (auto) 1.36 K/uL (1.20-3.40); Lymphocytes % (auto) 18.8 %; Mean Corpuscular Hemoglobin 24.5 pg (25.0-34.0); Mean Corpuscular Hgb Conc 30.9 g/dL (32.0-36.0); Mean Corpuscular Volume 79.5 fL (80.0-100.0); Mean Platelet Volume 9.6 fL (9.4-12.4); Monocytes # (auto) 0.45 K/uL (0.11-0.59); Monocytes % (auto) 6.2 %; Neutrophils # (auto) 5.39 K/uL (1.40-6.50); Neutrophils % (auto) 74.4 %; Platelet Count 172 K/uL (130-400); RDW Coefficient of Variation 18.6 % (11.5-14.5); RDW Standard Deviation 52.4 fL (36.4-46.3); Red Blood Count 4.93 M/uL (4.20-5.40); White Blood Count 7.25 K/ul (4.8-10.8)
[2023-10-12 18:21] VITALS: RESP 18
[2023-10-13] MEDS: DIPHTHER/TETAN/PERTUS Vaccine (Tdap, Adol/Adult) 0.5mL IM ONE (05:54)
[2023-10-13] MEDS: SODIUM CHLORIDE 0.9% 1,000 ML IV SCH (05:54)
[2023-10-13] MEDS: MoRPHine SULFATE PF 1 MG/ML 10 ML AMP/VIAL INT SPINAL ONE (05:54)
[2023-10-13] MEDS: LACTATED RINGER'S 1,000 ML IV SCH (05:58)
--- NOTE | 2023-10-13 10:22 | Obstetrical Progress Note ---
Date of Service October 13, 2023 Subjective Ambulation: ambulating normally Voiding: no voiding problems Passing Gas:: Yes Diet Tolerance:: regular diet Lochia:: Small Feeding Type:: breast feeding Current Pain Level(1-10): 0 doing well. plans to go home Physical Exam Constitutional WD/WN, vitals as above Gastrointestinal (Abdomen) Inspection/Auscultation: abdomen normal to inspection incision c/d/i Musculoskeletal Extremities: extremities normal to inspection Skin no rashes, warm and dry Neurologic patellar DTR's 2+ bilat, sensation intact Psychiatric A+Ox3, euthymic affect Results & Data Vital Signs (Past 12 Hours) Vital Signs Temp Pulse Resp BP Pulse Ox O2 Del Method 10/13/23 04:10 36.7 C 79 18 109/75 90 Room Air 10/12/23 23:30 36.7 C 63 18 109/71 95 Room Air Laboratory Results 10/10/23 10/11/23 10/12/23 06:04 07:32 06:33 WBC 4.78 L 7.25 RBC 4.46 4.93 Hgb 11.1 L 12.2 Hct 34.2 L MCV 76.7 L MCH 24.9 L MCHC 32.5 RDW Std Deviation 50.8 H RDW Coeff of Miriam 18.3 H Plt Count 115 L MPV 9.6 Immature Gran % (Auto) 0.4 Neut % (Auto) 77.7 Lymph % (Auto) 14.4 [place] % (Auto) 7.3 Eos % (Auto) 0.0 Baso % (Auto) 0.2 Neut # (Auto) 3.71 Lymph # (Auto) 0.69 L [place] # (Auto) 0.35 Eos # (Auto) 0.00 Baso # (Auto) 0.01 Immature Gran # (Auto) 0.02 Blood Type A Positive Antibody Screen NEGATIVE 10/12/23 10/12/23 06:33 06:33 WBC RBC Hgb 12.1 Hct 38.0 39.2 MCV 79.5 L MCH 24.5 L MCHC 30.9 L RDW Std Deviation 52.4 H RDW Coeff of Miriam 18.6 H Plt Count 172 MPV 9.6 Immature Gran % (Auto) 0.4 Neut % (Auto) 74.4 Lymph % (Auto) 18.8 [place] % (Auto) 6.2 Eos % (Auto) 0.1 Baso % (Auto) 0.1 Neut # (Auto) 5.39 Lymph # (Auto) 1.36 [place] # (Auto) 0.45 Eos # (Auto) 0.01 Baso # (Auto) 0.01 Immature Gran # (Auto) 0.03 Blood Type Antibody Screen
[2023-10-13 10:31] VITALS: BP 117/85; PULSE 81; TEMP 97.3; O2SAT 96
[2023-10-13] MEDS: ACETAMINOPHEN 325 MG TAB PO PRN (13:22)
--- NOTE | 2023-10-18 00:43 | Discharge Summary ---
Date of Service October 18, 2023 Discharge Data Procedures Performed Operation Date: 10/10/23 07:30 Actual Procedures p Primary Section - Melissa Tovar MD Hospital Course (1) delivery delivered: Patient is a 28-year-old G1, P0 at 39 weeks of gestation who was admitted on October 10, 2023 for scheduled primary due to persistent breech presentation at term. She has delivered a viable infant via primary as planned without complications. See dictated op note for details. On postop recovery patient was doing well, vital signs stable afebrile, urine o utput was adequate, pain was under control. On postop day 1 patient was doing well, vital signs stable afebrile, physical exam was unremarkable, allison dressing was clean dry intact, abdomen soft nonten benjamin, bleeding was minimal. She was advanced to regular diet, ambulated. On postop day #2 patient was doing well vital signs stable afebrile, H&H was stable physical exam was unremarkable. She was passing gas, tolerating regular diet. On postop day #3 on October 12 patient was doing well, she was discharged without problems. Discharge instructions were given and prescriptions were written for pain, she is to be seen in office in a week for incision check. All questions were answered. 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
== END 2023-10-13 14:55 | disposition home health service (06) | DRG 788 ==
LOC: 4S1 05:48 → EDSTATUS 07:30 → 4E2 12:47